=== PATIENT | female | born 1970 | race Caucasian/White ===

== ENCOUNTER 2017-10-16 09:37 | Day surgery (SDC) | payer OTHER ==
[2017-10-16] MEDS ORDERED: LIDOCAINE 4% SOLUTION 50 ML BTL (11:07)
[2017-10-16] MEDS ORDERED: FENTAnyl 50 MCG/ML VIAL (11:44)
[2017-10-16] MEDS ORDERED: MIDAZOLAM 1 MG/ML 2 ML INJ ×2 (11:45)
== END 2017-10-16 15:19 | disposition home or self-care (01) ==
LOC: GIL 09:37
DX: K29.30 Chronic superficial gastritis without bleeding (principal)
CPT/HCPCS: 43239; 84703; 88305; 88312